=== PATIENT | female | born 1995 | race Caucasian/White ===

== ENCOUNTER 2016-09-04 18:42 | Emergency (ER) | payer MEDICAID ==
[~2016-09-04] VITALS: Ht 162.6 cm; Wt 68.5 kg
[2016-09-04 18:51] VITALS: BP 125/88; PULSE 68; RESP 18; TEMP 98.4; O2SAT 96
[2016-09-04 20:00] VITALS: BP 107/61; PULSE 82; RESP 18; O2SAT 99
[2016-09-04] MEDS ORDERED: traMADol HCL 50 MG TAB PO ONE (20:15)
--- NOTE | 2016-09-04 20:47 | RADHPO ---
EXAM DATE/TIME: 09/05/2016 01:34 [place] COMPARISON: No previous studies available for comparison. INDICATIONS : Right leg pain. MEDICAL HISTORY : Right leg pain. SURGICAL HISTORY : None. ENCOUNTER: Initial ACUITY: 1 week PAIN SCORE: 8/10 LOCATION: Right leg. TECHNIQUE: Venous ultrasound of the leg was performed from the inguinal ligament to the proximal calf. Real-tree e, color Doppler and spectral tracing, compression and augmentation techniques were used. FINDINGS: There is normal compressibility of the deep venous system from the inguinal region to the proximal ca lf. No echogenic clot is seen in the lumen of the common femoral, femoral, popliteal, and posterior tibial veins. There is a normal response of the venous system to proximal and distal augmentation an d respiration. CONCLUSION: Normal examination. Patti Yao MD on September 04, 2016 at 20:45 Board Certified Radiologist. This report was verified electronically.
[2016-09-04 21:10] VITALS: BP 119/67; PULSE 79; RESP 18; O2SAT 100
[2016-09-04 21:20] LABS: POTASSIUM 3.9 MEQ/L (3.5-5.1)
[2016-09-04 21:23] LABS: BICARBONATE 28.4 MEQ/L (21.0-32.0)
[2016-09-04] MEDS ORDERED: ZANT150T2 PO (21:33)
[2016-09-04] MEDS ORDERED: ZOFR4TAB PO (21:33)
[2016-09-04] MEDS ORDERED: HYDR-3533 PO (21:33)
[2016-09-04] MEDS ORDERED: PANT20 PO (21:33)
[2016-09-04] MEDS ORDERED: CARA1TAB6 PO (21:33)
[2016-09-04 21:55] LABS: BASOPHIL # 0.1 TH/MM3 (0-0.2); BASOPHIL % 0.8 % (0.0-2.0); EOSINOPHIL # 0.5 TH/MM3 (0-0.4); EOSINOPHIL % 5.2 % (0.0-4.0); HEMATOCRIT 42.2 % (35.0-46.0); LYMPH % 21.3 % (9.0-44.0); LYMPHOCYTE # 1.9 TH/MM3 (1.0-4.8); MEAN CELL VOLUME 93.2 FL (80.0-100.0); MEAN CORPUSCULAR HEMOGLOBIN 31.3 PG (27.0-34.0); MEAN CORPUSCULAR HGB CONC 33.6 % (32.0-36.0); MONO % 5.8 % (0.0-8.0); NEUT % 66.9 % (16.0-70.0); PLATELET COUNT 304 TH/MM3 (150-450); RED BLOOD COUNT 4.53 MIL/MM3 (4.00-5.30)
[2016-09-04 21:57] LABS: HEMO FLAGS DIFF FINAL
[2016-09-04 22:00] VITALS: RESP 18
--- NOTE | 2016-09-04 22:10 | PD ---
HPI Chief Complaint: Pain: Acute or Chronic Time Seen by Provider: 20:09 Travel History International Travel<30 days: No Contact w/Intl Traveler<30days: No Traveled to known affect area: No History of Present Illness HPI Patient is a 20-year-old female who comes in complaining of swelling to her right leg and a feeling of restless leg. She says she drove here from [place] a little over a week ago and her symptoms started soon after. She is worried about having a blood clot in her leg. She has taken ibuprofen and some aspirin , which she said did not help. She denies any chest pain or shortness of breath. She does not have any history of blood clots, but says her grandparents had them. She denies any injury to the leg. She is worried because she has noticed one of the veins swelling in her legs. [facility] Past Medical History Depression: Yes Diminished Hearing: No Influenza Vaccination: Yes ?: Not LMP: 08/21/2016 Past Surgical History Surgical History: No Previous Surgery Social History Alcohol Use: Yes (occassional) Tobacco Use: No Allergies-Medications (Allergen,Severity, Reaction): Coded Allergies: No Known Allergies (Unverified , 09/04/16) Reported Meds & Prescriptions Reported Meds & Active Scripts Active Reported Lortab (Hydrocodone-Acetaminophen) 5-325 Mg Tab 1 Tab PO Q6H PRN Zantac (Ranitidine HCl) 150 Mg Tab 150 Mg PO DAILY Protonix (Pantoprazole Sodium) 20 Mg Tab 20 Mg PO DAILY Zofran (Ondansetron HCl) 4 Mg Tab 4 Mg PO Q6HR PRN Carafate (Sucralfate) 1 Gm Tab 1 Gm PO TID On empty stomach Review of Systems Except as stated in HPI: all other systems reviewed are Neg General / Constitutional: No: Fever, Chills HENT: No: Headaches, Lightheadedness Cardiovascular: No: Chest Pain or Discomfort, Palpitations Respiratory: No: Shortness of Breath Gastrointestinal: Positive: Nausea, No: Vomiting, Abdominal Pain Musculoskeletal: Positive: Pain Skin: No Rash, No Change in Pigmentation Neurologic: No: Weakness, Dizziness Physical Exam Narrative GENERAL: Awake and alert, in no acute distress. SKIN: Focused skin assessment warm/dry. HEAD: Atraumatic. Normocephalic. EYES: Pupils equal and round. No scleral icterus. ENT: Mucous membranes pink and moist. NECK: Trachea midline. No JVD. CARDIOVASCULAR: Regular rate and rhythm. No murmur appreciated. RESPIRATORY: No accessory muscle use. Clear to auscultation. Breath sounds equal bilaterally. GASTROINTESTINAL: Abdomen soft, non-tender, nondistended. MUSCULOSKELETAL: No obvious deformities. No clubbing. No cyanosis. No edema. No varicose veins, no calf tenderness. NEUROLOGICAL: Awake and alert. No obvious cranial nerve deficits. Motor grossly within normal limits. Normal speech. PSYCHIATRIC: Appropriate mood and affect; insight and judgment normal. Data Data Last Documented VS Vital Signs Date Time Temp Pulse Resp B/P Pulse Ox O2 Delivery O2 Flow Rate FiO2 09/04/16 22:00 18 09/04/16 21:10 79 119/67 100 Room Air 09/04/16 18:51 98.4 Orders Complete Blood Count With Diff (09/04/16 20:13) Basic Metabolic Panel (Bmp) (09/04/16 20:13) D-Dimer (09/04/16 20:13) Ed Urine Pregnancytest Poc (09/04/16 20:13) Tramadol (Ultram) (09/04/16 20:15) Us Leg Venous Doppler (09/04/16 ) Labs Laboratory Tests Test 09/04/16 20:45 White Blood Count 9.0 TH/MM3 Red Blood Count 4.53 MIL/MM3 Hemoglobin 14.2 GM/DL Hematocrit 42.2 % Mean Corpuscular Volume 93.2 FL Mean Corpuscular Hemoglobin 31.3 PG Mean Corpuscular Hemoglobin 33.6 % Concent Red Cell Distribution Width 12.0 % Platelet Count 304 TH/MM3 Mean Platelet Volume 9.5 FL Neutrophils (%) (Auto) 66.9 % Lymphocytes (%) (Auto) 21.3 % Monocytes (%) (Auto) 5.8 % Eosinophils (%) (Auto) 5.2 % Basophils (%) (Auto) 0.8 % Neutrophils # (Auto) 6.0 TH/MM3 Lymphocytes # (Auto) 1.9 TH/MM3 Monocytes # (Auto) 0.5 TH/MM3 Eosinophils # (Auto) 0.5 TH/MM3 Basophils # (Auto) 0.1 TH/MM3 CBC Comment DIFF FINAL Differential Comment D-Dimer Quantitative (PE/DVT) LESS THAN 0.19 MG/L FEU Sodium Level 141 MEQ/L Potassium Level 3.9 MEQ/L Chloride Level 103 MEQ/L Carbon Dioxide Level 28.4 MEQ/L Anion Gap 10 MEQ/L Blood Urea Nitrogen 10 MG/DL Creatinine 0.66 MG/DL Estimat Glomerular Filtration 113 ML/MIN Rate Random Glucose 92 MG/DL Calcium Level 9.0 MG/DL MDM Medical Decision Making Medical Screen Exam Complete: Yes Emergency Medical Condition: Yes Differential Diagnosis Muscle strain versus dehydration versus DVT versus restless leg syndrome Narrative Course Patient is a 20-year-old female comes in complaining of pain and a feeling of restlessness in her right leg. Exam shows no acute abnormalities. IV established, labs sent. Labs show no acute abnormalities. Ultrasound performed of the leg shows no evidence of DVT. Patient given tramadol, which she says helped her relax. Patient offered prescription for tramadol, however she declines at this time. Advised follow-up with her doctor. Advised to return to the ED as needed for any worsening symptoms. Diagnosis Primary Impression: Leg pain Qualified Code: M79.604 - Pain of right lower extremity Patient Instructions: General Instructions, Leg Pain (ED) Departure Forms: Tests/Procedures Additional Instructions: Increase your fluid intake. Take Tylenol or Motrin for pain. Follow up with your doctor. Return to the ED as needed for any worsening symptoms. Disposition: 01 DISCHARGE HOME Condition: Stable Lyubov Tirado MD Sep 04, 2016 22:10
== END 2016-09-04 22:53 | disposition home or self-care (01) ==
LOC: PHED 18:42
DX: M79.604 Pain in right leg (principal); M79.89 Other specified soft tissue disorders; F32.9 Major depressive disorder, single episode, unspecified
CPT/HCPCS: 80048; 84703; 85025; 85379; 93971